=== PATIENT | male | born 1945 | race Caucasian/White ===

== ENCOUNTER 2017-05-10 13:51 | Inpatient (IN) | payer MEDICARE ==
[~2017-05-10] VITALS: Ht 182.9 cm; Wt 114.9 kg
[2017-05-10 13:58] VITALS: BP 158/100
[2017-05-10 14:05] VITALS: BP 152/70
[2017-05-10 14:30] LABS: BASO # 0.1 10*3/uL (0.0-0.1); BASO % 0.6 % (0.0-1.0); EOS % 0.1 % (1.0-4.0); HEMATOCRIT 43.1 % (42.0-52.0); HEMOGLOBIN 13.3 g/dl (14.0-18.0); LYMPH # 1.2 10*3/uL (1.3-4.4); LYMPH % 15.4 % (27.0-41.0); MEAN CELL VOLUME 95.8 fl (80.0-94.0); MEAN CORPUSCULAR HGB 29.6 pg (27.0-31.0); MEAN CORPUSCULAR HGB CONC 30.9 g/dl (33.0-37.0); MEAN PLATELET VOLUME 11.4 fl (9.6-12.3); MONO # 0.4 10*3/uL (0.1-1.0); MONO % 5.3 % (3.0-9.0); NEUT % 78.3 % (47.0-73.0); PLATELET COUNT AUTOMATED 193 10*3/uL (130-400); RED CELL DISTRI WIDTH 16.4 % (0-14.5); WHITE BLOOD COUNT 7.7 10*3/uL (4.8-10.8)
[2017-05-10 14:46] LABS: ALBUMIN 3.3 gm/dl (3.1-4.5); CREATININE 2.54 mg/dL (0.70-1.30); POTASSIUM 4.3 mmol/L (3.5-5.1); TOTAL PROTEIN 7.4 gm/dL (6.4-8.2)
[2017-05-10 14:49] LABS: ACT PARTIAL THROMBO TIME 26.1 SECONDS (20.8-31.5); INTERNATIONAL NORM RATIO 1.1 (2.0-3.5)
[2017-05-10 14:50] LABS: TROPONIN I 0.059 ng/ml (<0.045)
[2017-05-10 15:30] VITALS: BP 150/96
[2017-05-10 16:00] VITALS: BP 148/104
--- NOTE | 2017-05-10 16:00 | NUR ---
A 72, admitted to 5E, under the services of NACHO Charles DO with a diagnosis of neri, ascites, dyspnea, elevated troponin, peripheral edema. Chief complaint is sob. Patient arrived via bed from ER. Monitor applied. Initial assessment completed. Vital signs taken and recorded. NACHO CHARLES DO notified of admission to the unit. Orders received. See assessment for past medical history, medications and allergies. Patient and/or family oriented to unit. [facility] visitation policy reviewed. Clothing/patient valuable form completed. ASSESSMENT COMPLETE. SKIN INTACT WITH NO WOUNDS. REFUSING FLU AND PNEUMONIA VACCINATIONS. NO HOME MEDICATIONS. ML DSOUZA
--- NOTE | 2017-05-10 16:15 | NUR ---
DR MNACERA AWARE OF NEW PT CONSULT. IN TO SEE PT. NO NEW ORDERS.
--- NOTE | 2017-05-10 16:35 | NUR ---
CALLED DR MEJIA TO INFORM HIM OF PTS ELEVATED BP READING 148/104 MANUAL. HE STATED TO ADMINISTER ORDERED PO LASIX AND CONTINUE TO MONITOR. PT OFF FLOOR FOR TEST WILL ADMINISTER UPON RETURN.
--- NOTE | 2017-05-10 16:43 | NUR ---
CALLED DR MYLES ANSWERING TO INFORM HIM OF NEW PT CONSULT. WAITING CASE INVESTIGATOR BACK
--- NOTE | 2017-05-10 18:23 | NUR ---
LAB CALLED WITH CRITICAL TROPONIN 0.070. DR GORDON AND DR YUSUF WITH CARDIOLOGY NOTIFIED. NO NEW ORDERS
[2017-05-10 20:00] VITALS: BP 138/94
--- NOTE | 2017-05-10 20:05 | NUR ---
PATIENT TRANSPORTED TO RADIOLOGY AT THIS TIME FOR CT ABDOMEN AND PELVIS.
--- NOTE | 2017-05-10 20:16 | NUR ---
PATIENT RETURNED AT THIS TIME [facility] .
--- NOTE | 2017-05-10 20:33 | NUR ---
DR. ESTRADA CALLED AND MADE AWARE OF PATIENTS TROPONIN 0.066 AT THIS TIME. NO NEW ORDERS. THIS A DECRESE FROM PREVIOUS VALUE .
--- NOTE | 2017-05-10 23:17 | NUR ---
DR. ESTRADA CALLED DUE TO PATIENTS CT ABDOMEN AND PELVIS RESULTS. PER DR. ESTRADA HE NAYANA CHECK OUT THE LABS IN THE MORNING. NO NEW ORDERS AT THIS TIME.
[2017-05-11] VITALS (11 sets, daily range): BP systolic 110–146; BP diastolic 61–89
--- NOTE | 2017-05-11 01:48 | NUR ---
24 HOUR CHART CHECK COMPLETED AT THIS TIME.
[2017-05-11 06:45] LABS: BASO # 0.1 10*3/uL (0.0-0.1); BASO % 0.7 % (0.0-1.0); EOS # 0.1 10*3/uL (0.0-0.4); HEMATOCRIT 41.7 % (42.0-52.0); HEMOGLOBIN 12.6 g/dl (14.0-18.0); LYMPH # 1.6 10*3/uL (1.3-4.4); LYMPH % 21.9 % (27.0-41.0); MEAN CELL VOLUME 97.4 fl (80.0-94.0); MEAN CORPUSCULAR HGB 29.4 pg (27.0-31.0); MEAN CORPUSCULAR HGB CONC 30.2 g/dl (33.0-37.0); MEAN PLATELET VOLUME 11.9 fl (9.6-12.3); MONO # 0.6 10*3/uL (0.1-1.0); MONO % 7.9 % (3.0-9.0); NEUT # 4.8 10*3/uL (2.3-7.9); NEUT % 68.2 % (47.0-73.0); PLATELET COUNT AUTOMATED 169 10*3/uL (130-400); RED BLOOD COUNT 4.28 10*6/uL (4.50-5.90); RED CELL DISTRI WIDTH 16.6 % (0-14.5); WHITE BLOOD COUNT 7.1 10*3/uL (4.8-10.8)
[2017-05-11 07:18] LABS: CREATININE 2.63 mg/dL (0.70-1.30); FREE T4 1.19 ng/dl (0.76-1.46); PHOSPHOROUS 4.5 mg/dL (2.5-4.9); POTASSIUM 5.2 mmol/L (3.5-5.1); TOTAL PROTEIN 6.9 gm/dL (6.4-8.2)
[2017-05-11 07:22] LABS: ACT PARTIAL THROMBO TIME 27.1 SECONDS (20.8-31.5); INTERNATIONAL NORM RATIO 1.1 (2.0-3.5); THYROID STIM HORMONE (HS) 2.17 uIU/ml (0.358-4.75)
[2017-05-11 08:36] LABS: VITAMIN D, 25-HYDROXY 22.8 ng/mL (30-100)
--- NOTE | 2017-05-11 10:00 | NUR ---
case management attempted to visit with patient, patient was going for ultrasound, will see later today
--- NOTE | 2017-05-11 10:19 | NUR ---
PATIENT TO ULTRASOUND FOR PARACENTESIS
--- NOTE | 2017-05-11 11:20 | NUR ---
PATIENT RETURNED TO FLOOR FROM ULTRASOUND PARACENTESIS PROCEDURE. GAUZE DRESSING WITH TEGADERM TO RLQ NOTED, MODERATE AMOUNT SEROUSANGUINOUS DRAINAGE NOTED TO DRESSING. DR. CONTRERAS IN TO SEE PATIENT RE: PLAN OF CARE, IS MAKING ARRANGEMENTS FOR TRANSFER TO [facility]) TODAY. PATIENT INSTRUCTED TO REMAIN ON BEDREST UNTIL 1300PM (2 HOURS POST PROCEDURE) AND VITAL SIGNS TO BE OBTAINED FREQUENTLY PER ORDER. SEE VITAL SIGNS FLOW FOR DETAILS.
[2017-05-11 11:31] LABS: BODY FLUID WBC 427 /uL
--- NOTE | 2017-05-11 11:43 | NUR ---
DR. KING'S ANSWERING SERVICE NOTIFIED OF PLANS TO TRANSFER TO [facility] TODAY.
--- NOTE | 2017-05-11 11:49 | NUR ---
DR. KING NOTIFIED OF PLANS TO TRANSFER TO [facility] TODAY AND THAT 2450ML BODY FLUID REMOVED DURING PARACENTESIS. OBTAINED ORDER FOR ALBUMIN 25% 25GM IV X 1 NOW.
[2017-05-11 12:14] LABS: BF LYMPHOCYTES 44 %; BF MACROPHAGES 30 %; BF MESOTHELIALS 1 %; BF MONOCYTES 1 %; BF NEUTROPHILS 24 %
--- NOTE | 2017-05-11 15:01 | NUR ---
DR. MANCERA'S OFFICE STAFF NOTIFIED THAT PATIENT WILL NOT RECEIVE ECHOCARDIOGRAM D/T THIS PATIENT ON SCHEDULE FOR TOMORROW, BUT HE IS TO BE TRANSFERRED TO [facility]
--- NOTE | 2017-05-11 15:15 | NUR ---
DRESSING TO RLQ SATURATED WITH SEROSANGUINOUS FLUID; REMOVED OLD DRESSING AND APPLIED DRY STERILE GAUZE DRESSING UNDER BANDAID, NO FURTHER DRAINAGE NOTED.
--- NOTE | 2017-05-11 16:38 | NUR ---
PATIENT C/O SOB, REPOSITIONED UP IN BED FOR COMFORT, NO DISTRESS OR TACHYPNEA NOTED ON O2 3L NC, POX 100% FAMILY AT BEDSIDE. BED AVAILABLE AT [facility], THE FACILITY WILL SEND ITS AMBULANCE FOR TELECOM NETWORK MANAGER AT 7PM TO TRANSPORT TO [facility] ROOM [id number]. NUMBER PROVIDED FOR NURSE TO NURSE REPORT, WILL NOTIFY PATIENT AND FAMILY AT THIS TIME OF THE ARRANGEMENTS.
--- NOTE | 2017-05-11 18:02 | NUR ---
PATIENT TRANSFERRED TO [facility] AT THIS TIME BY [facility]. REPORT CALLED TO RECEIVING RN AT [facility].
== END 2017-05-11 18:02 | disposition short-term general hospital (02) | DRG 291 ==
LOC: ED 13:51 → 5E 15:07 → EDHOLD 15:07 → 5E 15:37
PROVIDERS: Emergency Medicine; Internal Medicine; ADMIT Internal Medicine
PROC: 0W9G3ZZ Drainage of Peritoneal Cavity, Percutaneous Approach (ICD-10-PCS; principal; 2017-05-11)
DX: I11.0 Hypertensive heart disease with heart failure (principal); N17.0 Acute kidney failure with tubular necrosis; E87.2 Acidosis; J90 Pleural effusion, not elsewhere classified; R18.8 Other ascites; N13.30 Unspecified hydronephrosis; R65.10 Systemic inflammatory response syndrome (SIRS) of non-infectious origin without acute organ dysfunction; N13.4 Hydroureter; I50.9 Heart failure, unspecified; D72.810 Lymphocytopenia; R73.9 Hyperglycemia, unspecified; E55.9 Vitamin D deficiency, unspecified; Z87.891 Personal history of nicotine dependence; Z81.1 Family history of alcohol abuse and dependence; Z80.1 Family history of malignant neoplasm of trachea, bronchus and lung

== ENCOUNTER → 2017-07-27 | Outpatient (CLI) | payer OTHER | END | disposition home or self-care (01) | LOC: RAD 13:43 | DX: J18.9 Pneumonia, unspecified organism (principal); D72.829 Elevated white blood cell count, unspecified ==

== ENCOUNTER → 2017-08-29 | Outpatient (CLI) | payer MEDICARE | END | disposition home or self-care (01) | LOC: CARD 13:00 | DX: I34.0 Nonrheumatic mitral (valve) insufficiency (principal); I50.21 Acute systolic (congestive) heart failure ==

== ENCOUNTER → 2017-09-06 | Outpatient (CLI) | payer MEDICARE | END | disposition home or self-care (01) | LOC: NM 07:42 | DX: N25.9 Disorder resulting from impaired renal tubular function, unspecified (principal); N28.9 Disorder of kidney and ureter, unspecified ==

== ENCOUNTER → 2020-07-20 | Outpatient (CLI) | payer OTHER | END | disposition home or self-care (01) | LOC: CARD 09:30 | PROVIDERS: ATTEND Nurse Practitioner Family | DX: I05.8 Other rheumatic mitral valve diseases (principal) ==

== ENCOUNTER → 2021-01-05 | Outpatient (CLI) | payer OTHER | END | disposition home or self-care (01) | LOC: US 09:30 | PROVIDERS: ATTEND Nurse Practitioner Family | DX: K80.20 Calculus of gallbladder without cholecystitis without obstruction (principal); K74.60 Unspecified cirrhosis of liver ==